=== PATIENT | male | born 1970 | race American Indian/Alaskan Native ===

== ENCOUNTER 2016-06-01 07:33 | Day surgery (SDC) | payer OTHER ==
[~2016-06-01 07:33] MED LIST: Dextrose 5%-0.45% NaCl 1,000 ML IV SCH; Midazolam 1 MG/ML 2 ML SDV ONE; Sodium Chloride 0.9% 10 ML Syringe FLUSH PRN; fentaNYL 100 MCG/2 ML SDV ONE
[2016-06-01] MEDS ORDERED: fentaNYL 100 MCG/2 ML SDV IV ONE ×3 (08:10→16:39)
[2016-06-01] MEDS ORDERED: Midazolam 1 MG/ML 2 ML SDV IV ONE ×3 (08:11→16:39)
--- NOTE | 2016-06-01 09:05 | OR ---
DATE: 06/01/2016 PROCEDURE: Esophagogastroduodenoscopy and multiple pinch biopsies. INSTRUMENT USED: GIF-H180 Olympus video panendoscope. PREMEDICATIONS: No oral topical anesthesia used. Fentanyl 100 mcg intravenous, Versed 2 mg intravenous. Nasal 2 L O2 cannula. The procedure was done under pulse oximetry, BP recording, and director of cardiac cath lab. INDICATION: The patient with persistent upper abdominal pain, unexplained, and not responsive to medical measures. Esophagogastroduodenoscopy is performed for detection of any active erosive lesions, Marin's esophagus and/or malignancy also under consideration, H. pylori status to be determined, small bowel biopsies to be obtained if indicated, endoscopic hemostasis therapy if needed. DESCRIPTION OF PROCEDURE: The scope was passed with ease. Adequate visualization of the esophagus was made from proximal to distal areas. No upper esophageal lesions identified. No distal esophageal stricture. No uphill or downhill esophageal varices. No Wilma-Auguste tear. No evidence of erosive esophagitis by Hatton criteria. No esophageal polyp or tumor mass identified. Z-line was seen at around 40 cm distal to the oral verge, configuration consistent with grade 1 by ZAP classification. No proximal gastric varices noted. Gastric fundus examination by retroflexion showed no polypoid lesions. No gastric ulcer, malignant mass, or vascular ectasia identified. Duodenal bulb showed no ulcer. Visualized second part of the duodenum was unremarkable. Multiple pinch biopsies, 4 in number, were taken from different areas of the second part of the duodenum, tissues were also obtained from the duodenal bulb at 9 and 12 o'clock positions and sent for any histopathologic evidence of celiac disease. Multiple pinch biopsies were taken from the gastric antrum and proximal body and sent for PyloriTek test for H. pylori and histopathology. No bleeding was noted from any of the visualized areas at the completion of examination. Photographs were taken of the duodenal bulb, gastric antrum, fundus, and distal esophagus. IMPRESSION: Normal study. The patient tolerated the procedure well. [facility] /[id number]
--- NOTE | 2016-06-01 11:04 | LETTER ---
06/01/2016 Sariah Perry MD [facility] [address] [place] [address] RE: KAZ PÉREZ : 1970 Dear : [place]: Mr. Kaz Pérez had esophagogastroduodenoscopy done this morning, and he tolerated the procedure well. I herewith send a copy of the endoscopy note and photographs for your review. Thank you. Sincerely, [facility] /[id number]
[2016-06-01 11:22] VITALS: BP 117/91
== END 2016-06-01 10:25 | disposition home or self-care (01) ==
LOC: DL.ENDO 07:33
PROVIDERS: ATTEND Internal Medicine Gastroenterology
DX: K29.50 Unspecified chronic gastritis without bleeding (principal); E11.9 Type 2 diabetes mellitus without complications; E78.5 Hyperlipidemia, unspecified; G47.33 Obstructive sleep apnea (adult) (pediatric); F41.9 Anxiety disorder, unspecified; Z90.49 Acquired absence of other specified parts of digestive tract; Z98.890 Other specified postprocedural states; Z79.82 Long term (current) use of aspirin; Z79.899 Other long term (current) drug therapy; Z88.0 Allergy status to penicillin; Z88.1 Allergy status to other antibiotic agents; Z88.8 Allergy status to other drugs, medicaments and biological substances; F17.210 Nicotine dependence, cigarettes, uncomplicated
CPT/HCPCS: 43239; 87077; J2250; J3010; J7042

== ENCOUNTER 2016-09-03 09:00 | Day surgery (SDC) | payer OTHER ==
[~2016-09-03 09:00] MED LIST changes: -Dextrose 5%-0.45% NaCl 1,000 ML IV SCH; +Lactated Ringers 1,000 ML IV SCH; -Midazolam 1 MG/ML 2 ML SDV ONE; -Sodium Chloride 0.9% 10 ML Syringe FLUSH PRN; -fentaNYL 100 MCG/2 ML SDV ONE
[2016-09-03] MEDS ORDERED: Lidocaine 1% 30 ML SDV ONE ×2 (10:40→10:46)
[2016-09-03] MEDS ORDERED: Midazolam 1 MG/ML 2 ML SDV ONE (11:23)
[2016-09-03] MEDS ORDERED: Ondansetron 4 MG/2 ML SDV ONE (11:23)
[2016-09-03] MEDS ORDERED: fentaNYL 100 MCG/2 ML SDV ONE (11:23)
[2016-09-03] MEDS ORDERED: Propofol 200 MG/20 ML SDV ONE (11:24)
[2016-09-03] MEDS ORDERED: Lidocaine 1% 30 ML SDV INJECT ONE ×3 (11:49→16:54)
[2016-09-03 13:31] VITALS: BP 120/78
--- NOTE | 2016-09-03 14:41 | HP ---
HISTORY OF PRESENT ILLNESS: Mr. Kaz Pérez is a 46-year-old male whom we evaluated here for multiple months. Since he had a lap ovidio, he has had persistent pain at the right upper quadrant port site. There has been no identifications of any sort of mass or hernia defect, but he has had this persistent pain. I have now injected the area 2 times once with Marcaine and once with lidocaine and on the most significant spot and interesting that he had complete pain improvement, which lasted almost a day with a Marcaine and then it comes back. On my physical exam, I can always elicit it and is just inferior to the port site area. No time, I have not been able to feel a mass. PAST MEDICAL HISTORY: Please see my dictated H and P. PHYSICAL EXAMINATION: Again today, his lung sounds are clear. His heart rhythm is regular and on the same side that I have been injecting is where this pain is. Again, I took time as I marked the patient to go up and down and make sure I was getting the point of maximum pain stimulation. The plan is today that we are going to bring him to the operating room, give IV sedation, and I am going to see explore this area. He is very understanding to know that I could make the pain worse or the pain would stay the same and now he is going to get a bigger scar. Having said that there is a possibility that he has a little neuroma that is formed or may be a tiny little defect in the fascia I do not know, but I think with the fact that I have been able to inject it and give him some pain relief and it is worth the exploration. Risks of the procedure have been discussed with him on numerous occasions. Bleeding infection, heart attack, , injury to structures not intended, making things worse even giving him a big ugly scar. He understand these risks, and he still wishes to proceed. I gave him no guarantee at all that this is going to make an improvement but I feel comfortable that this will go in the right direction because I think that this might be the answer. [facility] /[id number]
[2016-09-03] MEDS ORDERED: fentaNYL 100 MCG/2 ML SDV IV ONE (17:00)
[2016-09-03] MEDS ORDERED: Ondansetron 4 MG/2 ML SDV IV ONE (17:00)
[2016-09-03] MEDS ORDERED: Propofol 200 MG/20 ML SDV IV ONE (17:00)
[2016-09-03] MEDS ORDERED: Midazolam 1 MG/ML 2 ML SDV IV ONE (17:00)
--- NOTE | 2016-09-03 17:53 | OR ---
DATE: 09/03/2016 PREOPERATIVE DIAGNOSIS: Persistent pain at port site, status post laparoscopic cholecystectomy. POSTOPERATIVE DIAGNOSES: Scar tissue and the port site hernia as well as a small defect of the rectus abdominis muscle where the port site was with a small amount of tissue coming out, not bowel. PROCEDURE: Exploration of wound with removal of subcutaneous tissue as well as the tissue from the port site defect of the rectus abdominis muscle and reapproximation. ANESTHESIA: IV sedation as well as 1% lidocaine without epinephrine. ESTIMATED BLOOD LOSS: Less than 5 mL. BRIEF HISTORY: Mr. Kaz Pérez is a 46-year-old male, who has had persistent pain in his port site since he had his laparoscopic cholecystectomy. I have on 2 occasions injected it with local at the trigger point and had resolution of the pain. The plan now is to explore the area to remove the subcutaneous tissue and see if there is any possible defect. DESCRIPTION OF PROCEDURE: The patient was brought to the operating room after I had marked the patient. A time-out was performed. The area was prepped and draped in usual fashion and IV sedation was begun. I placed 1% lidocaine in the subcutaneous tissue. I made a transverse incision where I had marked. I dissected through the skin and subcutaneous tissue and as to be expected, there were some new scarring of the tissue from where the port site was. I simply excised this area of the fatty tissue that did not have a normal appearance. I took this all the way down to the fascia and interesting enough there I could find, I did see the port site entry place and within just kind of peeping out of the rectus abdominis was some fatty tissue, but it was not bowel obviously. So I simply amputated that and reapproximated the 5 mm port site with Vicryl. I then irrigated the wound and used electrocautery for hemostasis as there were several little vessels. Once I had hemostasis, then I elected to simply reapproximate the skin edges using 4-0 and 3-0 Nylon in an interrupted mattress fashion. I then held pressure for 10 minutes. I hope that this will give the patient relief, but time will tell. The tissue itself did have some fibrosis. I do not think there was any lipoma in it, but I did send it to pathology. [facility] /[id number]
== END 2016-09-03 13:47 | disposition home or self-care (01) ==
LOC: DL.SDS 09:00
PROVIDERS: ATTEND Surgery
DX: T82.848A Pain due to vascular prosthetic devices, implants and grafts, initial encounter (principal); Z90.49 Acquired absence of other specified parts of digestive tract; Z88.0 Allergy status to penicillin; Z88.1 Allergy status to other antibiotic agents; Z88.8 Allergy status to other drugs, medicaments and biological substances
CPT/HCPCS: 20102; J2250; J2405; J2704; J3010; J7120

== ENCOUNTER 2017-01-04 08:50 | Day surgery (SDC) | payer OTHER ==
[2017-01-04] MEDS ORDERED: fentaNYL 100 MCG/2 ML SDV IV ONE (08:51)
[2017-01-04] MEDS ORDERED: Ketorolac 30 MG/ML SDV IVPUSH ONE (08:51)
[2017-01-04] MEDS ORDERED: Propofol 200 MG/20 ML SDV IV ONE (08:51)
[2017-01-04] MEDS ORDERED: Ondansetron 4 MG/2 ML SDV IV ONE (08:51)
[2017-01-04] MEDS ORDERED: Midazolam 1 MG/ML 2 ML SDV IV ONE (08:51)
[2017-01-04] MEDS ORDERED: Phenylephrine 1% 10 MG/ML SDV IV ONE (08:51)
[2017-01-04] MEDS ORDERED: Glycopyrrolate 0.2 MG/ML 2 ML SDV IV ONE (08:51)
[2017-01-04] MEDS ORDERED: Dexamethasone 4 MG/ML SDV IV ONE (08:51)
[2017-01-04] MEDS ORDERED: Neostigmine Methylsulfate 10 MG/10 ML MDV IV ONE (08:51)
[2017-01-04] MEDS ORDERED: Rocuronium 50 MG/5 ML Vial IV ONE (08:51)
[2017-01-04] MEDS ORDERED: Lactated Ringers 1,000 ML IV SCH (09:40)
[2017-01-04] MEDS ORDERED: fentaNYL 100 MCG/2 ML SDV ONE (09:50)
[2017-01-04] MEDS ORDERED: Ondansetron 4 MG/2 ML SDV ONE (09:50)
[2017-01-04] MEDS ORDERED: Midazolam 1 MG/ML 2 ML SDV ONE (09:50)
[2017-01-04] MEDS ORDERED: Dexamethasone 4 MG/ML SDV ONE (09:50)
[2017-01-04] MEDS ORDERED: Ketorolac 30 MG/ML SDV ONE (09:51)
[2017-01-04] MEDS ORDERED: Glycopyrrolate 0.2 MG/ML 2 ML SDV ONE (09:51)
[2017-01-04] MEDS ORDERED: Neostigmine Methylsulfate 10 MG/10 ML MDV ONE (09:51)
[2017-01-04] MEDS ORDERED: Propofol 200 MG/20 ML SDV ONE (09:51)
[2017-01-04] MEDS ORDERED: Rocuronium 50 MG/5 ML Vial ONE (09:56)
[2017-01-04 12:35] VITALS: BP 120/74
--- NOTE | 2017-01-04 13:03 | OR ---
DATE: 01/04/2017 PREOPERATIVE DIAGNOSIS: Chronic right upper quadrant pain. PREOPERATIVE DIAGNOSIS: Chronic right upper quadrant pain. PROCEDURES: Diagnostic laparoscopy. ANESTHESIA: General. ESTIMATED BLOOD LOSS: None. SPECIMEN: None. FINDINGS: Normal laparoscopy. RECOMMENDATION: This pain in the patient is most likely body wall. There is nothing to suggest intraabdominal origin. INDICATION FOR PROCEDURE: This 46-year-old male, had a laparoscopic cholecystectomy in 2005. He has chronic right upper quadrant abdominal pain since that time, especially at the right subcostal trocar site. This had been explored last year and scar tissue was freed up down to the fascia. There was a suggestion of preperitoneal fat pad in the fascial trocar site however. He did not improve symptoms after that exploration and I offered him a diagnostic laparoscopy for intraabdominal evaluation. PROCEDURE IN DETAIL: After adequate preparation, Veress needle was used to insufflate the abdomen. A 5-mm umbilical trocar was then placed, and a 5-mm camera. Examination the abdomen is normal. I could see the prior trocar site scar in the right upper quadrant. This has no fascial defect with nothing herniated through the opening. Liver appeared to be normal. A photograph of this was taken. I could see the appendix. He had a prior appendectomy, but I could see the appendiceal area, this is normal and no excessive scarring. The omentum is not attached to anywhere. The small bowel does not show evidence of Crohn's disease or thickening, no other intraabdominal adhesions, no hernias are noted, and the stomach appears to be normal. Air was expressed from the abdomen and the trocars were removed, and the skin was closed with 4-0 Vicryl. [facility] /[id number]
== END 2017-01-04 12:45 | disposition home or self-care (01) ==
LOC: DL.SDS 08:50
PROVIDERS: ATTEND Surgery
DX: R10.11 Right upper quadrant pain (principal); E11.9 Type 2 diabetes mellitus without complications; E66.9 Obesity, unspecified; F41.9 Anxiety disorder, unspecified; Z88.0 Allergy status to penicillin; Z88.1 Allergy status to other antibiotic agents; Z88.8 Allergy status to other drugs, medicaments and biological substances; Z87.891 Personal history of nicotine dependence; Z68.30 Body mass index [BMI] 30.0-30.9, adult
CPT/HCPCS: 49320; J1100; J1885; J2250; J2370; J2405; J2704; J2710; J3010; J7120; J3490

== ENCOUNTER → 2018-09-05 | Outpatient (CLI) | payer BC, OTHER | LOC: DL.MRI 08:06 | PROVIDERS: ATTEND Family Medicine | DX: K80.50 Calculus of bile duct without cholangitis or cholecystitis without obstruction (principal); Z90.49 Acquired absence of other specified parts of digestive tract | CPT/HCPCS: 74181 ==

== ENCOUNTER 2020-03-07 02:43 | Emergency (ER) | payer BC, OTHER ==
[2020-03-07 02:51] VITALS: PULSE 82
[2020-03-07] MEDS ORDERED: Ondansetron 4 MG/2 ML SDV IVPUSH ONE (02:51)
--- NOTE | 2020-03-07 03:07 | EDM.PDOC ---
ED HPI GENERAL MEDICAL PROBLEM - General Chief Complaint: ENT Problem Stated Complaint: AMBULANCE Time Seen by Provider: 03/07/20 02:45 Source of Information: Reports: Patient, EMS, RN History Limitations: Reports: No Limitations - History of Present Illness INITIAL COMMENTS - FREE TEXT/NARRATIVE: ED with c/o waking with dizziness nausea and vomiting with severe left sided pain in ear forehead to back of head. Dizziness and vomiting worse with movement. no prior episodes. General body aches, feels weak all over and clammy. [place] fine going to bed. No family members ill. Denies exposure. No difficulty with speech. Sensitive to light. Reported difficulty walking due to dizziness, moves about in cart repositions with ease. Left Head Pain Score (Numeric/FACES): 7 - Related Data Allergies Allergy/AdvReac Type Severity Reaction Status Date / Time acetaminophen Allergy Other Verified 01/04/17 09:19 [From Tylenol-Codeine] ampicillin Allergy Hives Verified 01/04/17 09:19 clindamycin Allergy Nausea Verified 01/04/17 09:19 codeine Allergy Other Verified 01/04/17 09:19 [From Tylenol-Codeine] metronidazole [From Flagyl] Allergy Itching Verified 01/04/17 09:19 oxycodone Allergy Itching Verified 01/04/17 09:19 penicillin V Allergy Cannot Verified 01/04/17 09:19 Remember Home Meds: Home Meds ALPRAZolam [Xanax] 0.5 mg PO DAILY PRN 10/27/14 [History] Insulin Detemir [Levemir Flextouch] 40 unit SQ BEDTIME 10/27/14 [History] Sildenafil [Viagra] 50 mg PO DAILY PRN 10/27/14 [History] traMADol [Ultram] 100 mg PO BID PRN 10/27/14 [History] Aspirin [Halfprin] 81 mg PO DAILY 06/01/16 [History] Insulin Aspart [Novolog Flexpen] 15 unit INJECT TIDMEALS 06/01/16 [History] Lisinopril 5 mg PO DAILY 06/01/16 [History] Pantoprazole [ProTONIX] 20 mg PO BID 06/01/16 [History] Zolpidem [Ambien] 10 mg PO BEDTIME PRN 06/01/16 [History] atenoloL [Atenolol] 25 mg PO DAILY 06/01/16 [History] atorvaSTATin [Lipitor] 20 mg PO DAILY 06/01/16 [History] sitaGLIPtin Phos/Metformin HCl [Janumet 50-1,000 MG] 1 tab PO BID 06/01/16 [History] Past Medical History HEENT History: Reports: None Cardiovascular History: Reports: High Cholesterol Respiratory History: Reports: Sleep Apnea, Other (See Below) Other Respiratory History: nodule to left upper lobe measures 2-3mm Gastrointestinal History: Reports: Other (See Below) Other Gastrointestinal History: CHRONIC UPPER RIGHT SIDED ABDOMINAL PAIN Genitourinary History: Reports: None, Other (See Below) Other Genitourinary History: ERECTILE DYSFUNCTION Musculoskeletal History: Reports: Arthritis, Back Pain, Chronic Neurological History: Reports: None Psychiatric History: Reports: Anxiety Endocrine/Metabolic History: Reports: Diabetes, Type II, Obesity/BMI 30+ Hematologic History: Reports: None Immunologic History: Reports: None Oncologic (Cancer) History: Reports: None Dermatologic History: Reports: None - Infectious Disease History Infectious Disease History: Reports: None - Past Surgical History Head Surgeries/Procedures: Reports: None HEENT Surgical History: Reports: Adenoidectomy, LASIK, Tonsillectomy Cardiovascular Surgical History: Reports: None Respiratory Surgical History: Reports: None GI Surgical History: Reports: Appendectomy, Cholecystectomy, Colonoscopy, EGD Male Surgical History: Reports: None Endocrine Surgical History: Reports: None Neurological Surgical History: Reports: None Musculoskeletal Surgical History: Reports: None Oncologic Surgical History: Reports: None Dermatological Surgical History: Reports: None Social & Family History - Caffeine Use Caffeine Use: Reports: Soda Other Caffeine Use: DAILY SODA IN THE AM - Living Situation & Occupation Living situation: Reports: Single Occupation: Employed ED ROS GENERAL - Review of Systems Review Of Systems: Comprehensive ROS is negative, except as noted in HPI. ED EXAM, DIZZINESS - Physical Exam Exam: See Below Exam Limited By: No Limitations General Appearance: Alert, Anxious, Moderate Distress Eye Exam: Bilateral Eye: EOMI, Nystagmus, PERRL, Vision Changes (blurred) Ears: Normal External Exam, Hearing Grossly Normal Nose: Normal Inspection Throat/Mouth: Normal Inspection Head Exam: Atraumatic, Normocephalic, Other (tender mid forehead to left occipital. ) Vertigo: constant Neck: Normal Inspection, Full Range of Motion Respiratory/Chest: No Respiratory Distress, Lungs Clear, Normal Breath Sounds Cardiovascular: Normal Peripheral Pulses, Regular Rate, Rhythm GI/Abdominal: Normal Bowel Sounds, Soft, Non-Tender Neurological: Alert, Normal Dorsiflexion, Normal Plantar Flexion, No Motor/Sensory Deficits, Oriented x 3, Other (describes bilateral visual gordon blurrey, no field defecit, Pupils equal reactive. Bilateral nystagmus, NIH =0). No: Abnormal Finger to Nose, Abnormal Sensation, Tremor Back Exam: Normal Inspection, Full Range of Motion Extremities: Normal Range of Motion Psychiatric: Anxious Skin Exam: Warm, Dry, Normal Color Course - Vital Signs Last Recorded V/S: Last Vital Signs Temp 97 F 03/07/20 02:44 Pulse 82 03/07/20 02:44 Resp 16 03/07/20 02:44 BP Pulse Ox 100 03/07/20 02:44 - Orders/Labs/Meds Orders: Active Orders 24 hr Category Date Time Status Isolation [COMM] Routine Oth 03/07/20 03:38 Active Labs: Laboratory Tests 03/07/20 03/07/20 03/07/20 Range/Units 03:00 03:05 03:05 WBC 16.8 H (5.0-10.0) 10^3/uL RBC 4.80 (4.6-6.2) 10^6/uL Hgb 13.9 L (14.0-18.0) g/dL Hct 40.8 (40.0-54.0) % MCV 85.0 (80-100) fL MCH 29.0 (27.0-34.0) pg MCHC 34.1 (33.0-35.0) g/dL Plt Count 362 (150-450) 10^3/uL Neut % (Auto) 75.1 (42.2-75.2) % Lymph % (Auto) 16.4 L (20.5-50.1) % Sharp % (Auto) 5.5 (2-8) % Eos % (Auto) 2.6 (1.0-3.0) % Baso % (Auto) 0.4 (0.0-1.0) % Add Manual Diff Yes Neutrophils % (Manual) 67 (42-75) % Band Neutrophils % 5 % Lymphocytes % (Manual) 23 (20-50) % Atypical Lymphs % 0 % Monocytes % (Manual) 2 (2-8) % Eosinophils % (Manual) 3 (1-3) % D-Dimer, Quantitative (0-400) ng/mL Sodium 139 (136-145) mmol/L Potassium 4.1 (3.5-5.1) mmol/L Chloride 102 (98-107) mmol/L Carbon Dioxide 27 (21-32) mmol/L Anion Gap 14.1 H (7-13) mEq/L BUN 29 H (7-18) mg/dL Creatinine 0.99 (0.70-1.30) mg/dL Est Cr Clr Drug Dosing 92.17 mL/min Estimated GFR (MDRD) > 60 BUN/Creatinine Ratio 29.3 (No establ ref range) Glucose 193 H (74-99) mg/dL POC Glucose (70-105) mg/dl Lactic Acid (0.4-2.0) mmol/L Calcium 9.0 (8.5-10.1) mg/dL Total Bilirubin 0.2 (0.2-1.0) mg/dL AST 15 (15-37) U/L ALT 33 (16-63) U/L Alkaline Phosphatase 129 H (46-116) U/L C-Reactive Protein 0.8 (0.0-0.9) mg/dL Total Protein 7.2 (6.4-8.2) g/dL Albumin 3.6 (3.4-5.0) g/dL Globulin 3.6 Albumin/Globulin Ratio 1.0 SARS-CoV-2 RNA (DUARTE) Negative (NEGATIVE) 03/07/20 03/07/20 03/07/20 Range/Units 03:05 03:05 03:12 WBC (5.0-10.0) 10^3/uL RBC (4.6-6.2) 10^6/uL Hgb (14.0-18.0) g/dL Hct (40.0-54.0) % MCV (80-100) fL MCH (27.0-34.0) pg MCHC (33.0-35.0) g/dL Plt Count (150-450) 10^3/uL Neut % (Auto) (42.2-75.2) % Lymph % (Auto) (20.5-50.1) % Sharp % (Auto) (2-8) % Eos % (Auto) (1.0-3.0) % Baso % (Auto) (0.0-1.0) % Add Manual Diff Neutrophils % (Manual) (42-75) % Band Neutrophils % % Lymphocytes % (Manual) (20-50) % Atypical Lymphs % % Monocytes % (Manual) (2-8) % Eosinophils % (Manual) (1-3) % D-Dimer, Quantitative < 100 (0-400) ng/mL Sodium (136-145) mmol/L Potassium (3.5-5.1) mmol/L Chloride (98-107) mmol/L Carbon Dioxide (21-32) mmol/L Anion Gap (7-13) mEq/L BUN (7-18) mg/dL Creatinine (0.70-1.30) mg/dL Est Cr Clr Drug Dosing mL/min Estimated GFR (MDRD) BUN/Creatinine Ratio (No establ ref range) Glucose (74-99) mg/dL POC Glucose 189 H (70-105) mg/dl Lactic Acid 2.6 H* (0.4-2.0) mmol/L Calcium (8.5-10.1) mg/dL Total Bilirubin (0.2-1.0) mg/dL AST (15-37) U/L ALT (16-63) U/L Alkaline Phosphatase (46-116) U/L C-Reactive Protein (0.0-0.9) mg/dL Total Protein (6.4-8.2) g/dL Albumin (3.4-5.0) g/dL Globulin Albumin/Globulin Ratio SARS-CoV-2 RNA (DUARTE) (NEGATIVE) Meds: Medications Discontinued Medications Generic Name Dose Route Start Last Admin Trade Name Freq PRN Reason Stop Dose Admin Lorazepam 1 mg 03/07/20 04:20 03/07/20 04:34 Ativan IVPUSH 03/07/20 04:21 1 mg ONETIME ONE Administration Metoclopramide HCl 10 mg 03/07/20 04:01 03/07/20 04:06 Reglan IVPUSH 03/07/20 04:02 10 mg ONETIME ONE Administration Ondansetron HCl 4 mg 03/07/20 02:51 03/07/20 03:09 Zofran IVPUSH 03/07/20 02:52 4 mg ONETIME ONE Administration - Re-Assessments/Exams Free Text/Narrative Re-Assessment/Exam: 03/07/20 04:02 [facility], no bed availability. Tc Consult Sudhir, awaiting Neurology call back. Patient remains alert orient, pain to back of head, dizziness with minimal movement, blurred vision nystagmus, nausea. no weakness. 03/07/20 04:[address] Mares, accepting patient. Tx via [employer]. Patient gives verbal authorization to update sister Mirna with information. Departure - Departure Time of Disposition: 04:56 Disposition: DC/Tfer to Acute Hospital 02 Condition: Undetermined Clinical Impression: Ischemic cerebrovascular accident (CVA), Dizzy Nausea & vomiting Qualifiers: Vomiting type: unspecified - Discharge Information *PRESCRIPTION DRUG MONITORING PROGRAM REVIEWED*: No *COPY OF PRESCRIPTION DRUG MONITORING REPORT IN PATIENT LISE: No Referrals: PCP,None [Ordering Only Provider] - Forms: ED Department Discharge Sepsis Event Note (ED) - Evaluation Sepsis Screening Result: No Definite Risk - Focused Exam Vital Signs: Vital Signs Temp Pulse Resp Pulse Ox 03/07/20 02:44 97 F 82 16 100 - My Orders Last 24 Hours: My Active Orders 03/07/20 03:38 Isolation [COMM] Routine - Assessment/Plan Last 24 Hours: My Active Orders 03/07/20 03:38 Isolation [COMM] Routine
--- NOTE | 2020-03-07 03:39 | CT ---
PROCEDURE INFORMATION: Exam: CT Head Without Contrast Exam date and time: 03/07/2020 3:24 AM Age: 49 years old Clinical indication: Dizziness and other: Headache, vomiting; Additional info: Dizzy headache vomiting TECHNIQUE: Imaging protocol: Computed tomography of the head without contrast. Radiation optimization: All CT scans at this facility use at least one of these dose optimization techniques: automated exposure control; mA and/or kV adjustment per patient size (includes targeted exams where dose is matched to clinical indication); or iterative reconstruction. Other technique: STROKE PROTOCOL was implemented. COMPARISON: No relevant prior studies available. FINDINGS: Brain: Loss of color[place]-white matter differentiation in the left occipital lobe concerning for an acute infarct. Mild generalized parenchymal atrophy and evidence of microvascular ischemic disease involving periventricular and subcortical white matter bilaterally. Cerebral ventricles: No ventriculomegaly. Bones/joints: Unremarkable. No acute fracture. Paranasal sinuses: Mild paranasal sinus disease. Mastoid air cells: Visualized mastoid air cells are well aerated. Soft tissues: Unremarkable. IMPRESSION: Loss of colorado-white matter differentiation in the left occipital lobe concerning for an acute infarct. ASSESSMENT: ASPECTS ([place] Stroke Program Early CT Score) is 10.
[2020-03-07 03:51] LABS: ANION GAP 14.1 mEq/L (7-13); CHLORIDE,CL 102 mmol/L (98-107); SODIUM,NA 139 mmol/L (136-145)
[2020-03-07] MEDS ORDERED: Metoclopramide 10 MG/2 ML SDV IVPUSH ONE (04:01)
[2020-03-07] MEDS ORDERED: LORazepam 2 MG/ML SDV IVPUSH ONE (04:20)
== END 2020-03-07 04:45 ==
LOC: DL.ED 02:43
DX: I63.9 Cerebral infarction, unspecified (principal); R11.2 Nausea with vomiting, unspecified; E11.9 Type 2 diabetes mellitus without complications; E66.9 Obesity, unspecified; F41.9 Anxiety disorder, unspecified; E78.00 Pure hypercholesterolemia, unspecified; Z20.828 Contact with and (suspected) exposure to other viral communicable diseases; Z90.49 Acquired absence of other specified parts of digestive tract; Z88.5 Allergy status to narcotic agent; Z88.1 Allergy status to other antibiotic agents; Z88.0 Allergy status to penicillin; Z79.4 Long term (current) use of insulin; Z79.82 Long term (current) use of aspirin; Z79.899 Other long term (current) drug therapy; Z68.31 Body mass index [BMI] 31.0-31.9, adult
CPT/HCPCS: 36415; 70450; 80053; 82962; 83605; 85025; 85379; 86140; 87635; 87804; 93005; 96374; 96375; 99285; J2060; J2405; J2765; 99284; U0002

== ENCOUNTER 2022-02-03 14:17 | Emergency (ER) | payer BC, OTHER ==
[2022-02-03] MEDS ORDERED: Ondansetron 4 MG Tab.DIS PO ONE (14:18)
[2022-02-03 14:28] VITALS: BP 129/88; PULSE 106
[2022-02-03] MEDS ORDERED: Ondansetron 4 MG/2 ML SDV IVPUSH ONE (14:39)
[2022-02-03] MEDS ORDERED: Sodium Chloride 0.9% 10 ML Syringe FLUSH PRN (14:39)
[2022-02-03] MEDS ORDERED: Sodium Chloride 0.9% 1,000 ML IV ONE (14:40)
[2022-02-03 15:25] LABS: ANION GAP 11.5 mEq/L (7-13); CHLORIDE,CL 103 mmol/L (98-107); SODIUM,NA 140 mmol/L (136-145)
[2022-02-03 15:28] LABS: ESTIMATED GFR 94 mL/min (>=60)
[2022-02-03] MEDS ORDERED: Iopamidol 612 MG/ML 100 ML Bottle IVPUSH ONE (15:34)
[2022-02-03 15:41] LABS: CORONAVIRUS COVID-19 NAA NEGATIVE (NEGATIVE)
[2022-02-03] MEDS ORDERED: Ondansetron 4 MG Tab.DIS ONE (17:22)
== END 2022-02-03 17:26 | disposition home or self-care (01) ==
LOC: DL.ED 14:17
DX: K52.9 Noninfective gastroenteritis and colitis, unspecified (principal); E11.9 Type 2 diabetes mellitus without complications; E78.00 Pure hypercholesterolemia, unspecified; M19.90 Unspecified osteoarthritis, unspecified site; E66.9 Obesity, unspecified; Z68.29 Body mass index [BMI] 29.0-29.9, adult; Z79.899 Other long term (current) drug therapy; Z88.8 Allergy status to other drugs, medicaments and biological substances; Z88.0 Allergy status to penicillin; Z88.5 Allergy status to narcotic agent; Z88.1 Allergy status to other antibiotic agents; Z20.822 Contact with and (suspected) exposure to COVID-19
CPT/HCPCS: 0240U; 36415; 71260; 74177; 80053; 81003; 82150; 82947; 83605; 83690; 84145; 85025; 86140; 96374; 99284; A9270; J2405; J3490; J7030; Q9967

== ENCOUNTER 2023-06-17 12:03 | Emergency (ER) | payer BC, OTHER ==
[2023-06-17 12:07] LABS: BASOPHILS PERCENT AUTO 0.3 % (0.0-1.0); EOSINOPHILS PERCENT AUTO 0.1 % (1.0-3.0); HEMATOCRIT 42.8 % (40.0-54.0); HEMOGLOBIN 14.4 g/dL (14.0-18.0); LYMPHOCYTES PERCENT AUTO 12.8 % (20.5-50.1); MEAN CORPUSCULAR HEMOGLOBIN 28.7 pg (27.0-34.0); MEAN CORPUSCULAR HGB CONC 33.6 g/dL (33.0-35.0); MEAN CORPUSCULAR VOLUME 85.3 fL (80-100); NEUTROPHILS PERCENT AUTO 80.8 % (42.2-75.2); PLATELET COUNT,PLT 394 10^3/uL (150-450); RED BLOOD CELL COUNT 5.02 10^6/uL (4.6-6.2); WHITE BLOOD CELL COUNT,WBC 14.5 10^3/uL (5.0-10.0)
[2023-06-17] MEDS: Sodium Chloride 0.9% 10 ML Syringe FLUSH PRN (12:07)
[2023-06-17 12:35] LABS: ALANINE AMINOTRANSFERASE,ALT 21 U/L (16-63); ALBUMIN 3.8 g/dL (3.4-5.0); ALKALINE PHOSPHATASE 127 U/L (46-116); ANION GAP 16.8 mEq/L (7-13); ASPARTATE AMNIOTRANSFERASE,AST 10 U/L (15-37); BILIRUBIN TOTAL 0.4 mg/dL (0.2-1.0); BLOOD UREA NITROGEN,BUN 28 mg/dL (7-18); CARBON DIOXIDE,CO2 25 mmol/L (21-32); CHLORIDE,CL 99 mmol/L (98-107); CREATININE 1.22 mg/dL (0.70-1.30); EST CRCL DRUG DOSING (CG) 73.72 mL/min; GLUCOSE RANDOM 220 mg/dL (70-99); MAGNESIUM 1.8 mg/dL (1.8-2.4); POTASSIUM,K 4.8 mmol/L (3.5-5.1); PROTEIN TOTAL,TP 7.5 g/dL (6.4-8.2); SODIUM,NA 136 mmol/L (136-145); TSH ULTRASENSITIVE 0.06 uIU/mL (0.36-3.74)
[2023-06-17 12:40] LABS: ESTIMATED GFR 70 mL/min (>=60)
[2023-06-17 12:41] LABS: C-REACTIVE PROTEIN < 0.50 ng/dL (<=0.50)
[2023-06-17] MEDS: Iopamidol 755 Mg/ML 100 ML Bottle IVPUSH ONE (13:35)
[2023-06-17 13:47] VITALS: BP 115/77; PULSE 91
[2023-06-17] MEDS: Ketorolac 30 MG/ML SDV IVPUSH ONE (14:17)
[2023-06-17] MEDS: Acetaminophen 500 MG Tab PO ONE (14:17)
[2023-06-17] MEDS: methylPREDNISolone Sodium Succinate 125 MG/2 ML SDV IVPUSH ONE (15:46)
== END 2023-06-17 15:48 | disposition home or self-care (01) ==
LOC: DL.ED 12:03
DX: E06.9 Thyroiditis, unspecified (principal); E78.00 Pure hypercholesterolemia, unspecified; E10.9 Type 1 diabetes mellitus without complications; E66.9 Obesity, unspecified; Z79.82 Long term (current) use of aspirin; Z88.0 Allergy status to penicillin; Z88.5 Allergy status to narcotic agent; Z88.1 Allergy status to other antibiotic agents; Z79.4 Long term (current) use of insulin; Z79.899 Other long term (current) drug therapy; Z90.49 Acquired absence of other specified parts of digestive tract
CPT/HCPCS: 36415; 70496; 70498; 80053; 83735; 84439; 84443; 85025; 85651; 86140; 96374; 96375; 99285; A9270; J1885; J2930; Q9967; 99284; J3490